=== PATIENT | male | born 1970 | race Caucasian/White ===

== ENCOUNTER 2020-06-14 13:43 | Outpatient (CLI) | payer BC, SELFPAY ==
--- NOTE | ~2020-06-14 | NM_ITS ---
EXAMINATION: NM thyroid scan w uptake DATE: 06/15/2020 15:01 INDICATION: Thyrotoxicosis COMPARISON: None. TECHNIQUE: 358 microcuries I-123 was administered orally in capsule form. Scintigraphic images of th e thyroid gland were obtained at 24 hours. Thyroid uptake was calculated by the technologist. FINDINGS: The thyroid uptake is 51.7% (normal 10-30%), with the right lobe measuring 33.3% uptake and the left 19.3%. Although there is asymmetric increased uptake in the right thyroid lobe there is no focal area of decreased or increased activity within either lobe to suggest hypofunctioning or hyperfunctioning nodule. IMPRESSION: 1. Bilateral diffuse increased thyroid uptake particularly in the right thyroid lobe consistent with Graves' disease. Reviewed, dictated and finalized at location B. IMPRESSION: 1. Bilateral diffuse increased thyroid uptake particularly in the right thyroi d lobe consistent with Graves' disease.
== END 2020-06-14 13:44 | disposition home or self-care (01) ==
PROVIDERS: PCP Internal Medicine; Visit Provider Internal Medicine
DX: E05.90 Thyrotoxicosis, unspecified without thyrotoxic crisis or storm (principal)
CPT/HCPCS: 78014; A9516

== ENCOUNTER 2021-03-17 13:42 | Outpatient (RCR) | payer BC, SELFPAY ==
[2021-03-17] MEDS: ACETAMINOPHEN 325 MG TABLET 650 MG PO (15:16)
[2021-03-17] MEDS: FAMOTIDINE 20 MG TABLET PO (15:17)
[2021-03-17] MEDS: diphenhydrAMINE HCl CAP 25 MG CAPSULE PO (15:17)
[2021-03-17 15:24] VITALS: BP 130/74; PULSE 65; RESP 18; TEMP 37.2; O2SAT 98
[2021-03-17 16:47] VITALS: BP 120/70
== END 2021-03-17 17:00 ==
LOC: AMCINF 13:42
PROVIDERS: PCP Internal Medicine; Referring Provider Internal Medicine; Visit Provider Internal Medicine Hematology & Oncology
DX: U07.1 COVID-19 (principal); I48.91 Unspecified atrial fibrillation; E05.00 Thyrotoxicosis with diffuse goiter without thyrotoxic crisis or storm; D84.9 Immunodeficiency, unspecified
CPT/HCPCS: A9270; M0243; Q0244

== ENCOUNTER → 2021-03-21 16:03 | Outpatient (CLI) | payer BC, SELFPAY ==
--- NOTE | ~2021-03-21 | XR_ITS ---
EXAMINATION: XR finger 3rd LT min 2V EXAM DATE: 03/21/2021 16:25 INDICATION: S63.289A - Dislocation of proximal interphalangeal joint of unspecified finger. Initial xray to Injury of LT hand 3rd digit from 1 year ago. no pain. pt cannot bend finger. TECHNIQUE: Left 3rd finger frontal, lateral and oblique projections obtained and reviewed. There i s no prior study for comparison at this time, reportedly there was an old x-ray from a year ago which is not available. FINDINGS: There is abnormal articulation at the left 3rd proximal interphalangeal joint, abnormal sha pe to the volar half of the middle phalangeal base, probably from a healed old fracture, with widenin g of the base articular surface, and in a posteriorly subluxed position. Mild to moderate osteoarthri tis at this joint which could be secondary to that old trauma. IMPRESSION: Left 3rd PIP joint appearance likely result of healed middle phalangeal base fracture, s econdary osteoarthritis. Reviewed, dictated and finalized at location A. WARE PROJECT MANAGER IMPRESSION: Left 3rd PIP joint appearance likely result of healed middle phala ngeal base fracture, secondary osteoarthritis.
--- NOTE | ~2021-03-21 | XR_ITS ---
EXAMINATION: XR chest 2V DATE: 03/21/2021 16:25 INDICATION: Hemoptysis. COVID-19 positive 10 days ago. TECHNIQUE: Frontal and lateral views of the chest were obtained. COMPARISON: None. FINDINGS: There is mild elevation of right hemidiaphragm. There are mild airspace opacities in right mid lung zone. No pleural effusion or pneumothorax. The heart size is normal. There is an implanted e lectronic device in left anterior chest wall. IMPRESSION: 1. Mild airspace opacities in right midlung zone, consistent with pneumonia. Reviewed, dictated and finalized at location B. ATING ROOM SPECIALIST
== END ==
PROVIDERS: PCP Internal Medicine; Visit Provider Internal Medicine
DX: R04.2 Hemoptysis (principal); S63.289A Dislocation of proximal interphalangeal joint of unspecified finger, initial encounter; X58.XXXA Exposure to other specified factors, initial encounter
CPT/HCPCS: 71046; 73140

== ENCOUNTER 2023-09-21 08:50 | Outpatient (CLI) | payer BC, SELFPAY ==
--- NOTE | ~2023-09-21 | US_ITS ---
EXAMINATION: US soft tissue abdomen DATE: 09/21/2023 09:09 INDICATION: Abdominal wall lump. TECHNIQUE: Multiple grayscale and Doppler ultrasound images of the abdomen were obtained. COMPARISON: None FINDINGS: There is a supraumbilical ventral hernia containing fat. IMPRESSION: 1. Supraumbilical ventral hernia containing fat. Reviewed, dictated and finalized at location E.
== END 2023-09-21 08:51 ==
PROVIDERS: PCP Internal Medicine; Visit Provider Nurse Practitioner
DX: R19.00 Intra-abdominal and pelvic swelling, mass and lump, unspecified site (principal); K42.9 Umbilical hernia without obstruction or gangrene; K43.9 Ventral hernia without obstruction or gangrene
CPT/HCPCS: 76705

== ENCOUNTER 2025-01-16 01:17 | Day surgery (SDC) | payer BC, SELFPAY ==
[2025-01-12 16:04] VITALS: BMI 36.9
--- NOTE | 2025-01-12 16:18 | SUR.PREOP ---
SPoke with patient in regards to his eliquis. Last dose is to be on 01/13/2025 for his colonoscopy on 01/16/2025. Patient verbalized understanding.
--- OUTSIDE RECORDS SUMMARY | 2025-01-16 01:20 | XMS_ITS | Clinical Summary ---
Author Organization [facility] Address [address] [place] [id number] Care Team Providers Care Canal Lock Tender Chief Operator Name Role Phone Wero Soares DO Primary Care Provider [phone] Allergies Active Allergy Reactions Criticality Noted Date Comments Amoxicillin Hives,Shortness of Breath High 0 Cefaclor Rash Medium 08/20/2018 Erythromycin Hives,Rash Medium 06/22/2018 Medications dofetilide (TIKOSYN) 250 MCG capsule Take 1 capsule (250 mcg total) by mouth 2 (two) times daily. Active metoprolol tartrate (LOPRESSOR) 50 MG tablet Take 1 tablet (50 mg total) by mouth 2 (two) times daily. Active methIMAzole (TAPAZOLE) 10 MG tablet 1 tablet (10 mg total). 02/28/2023 Active ELIQUIS 5 MG tablet Take 1 tablet (5 mg total) by mouth 2 (two) times daily. Active albuterol sulfate HFA 108 (90 Base) MCG/ACT inhaler Inhale 2 puffs into the lungs every 6 (six) hours as needed. 8 g 02/03/2024 Active Family History Medical History Relation Comments No Known Problems Father No Known Problems Mother Relation Status Comments Father Mother Social History Tobacco Use Types Packs/Day Years Used Date Smoking Tobacco: Never Passive Smoke Exposure: Never Smokeless Tobacco: Never Tobacco Cessation:Counseling Given: Not Answered Alcohol Use Standard Drinks/Week Comments Not Currently 0 (1 standard drink = 0.6 oz pur e alcohol) Sex and Gender Information Value Date Recorded Sex Assigned at Not on file Legal Sex Male 8:03 PM CDT Gender Identity Not on file Sexual Orientation Not on file Last Filed Vital Signs Vital Sign Reading Time Taken Comments Blood Pressure 149/92 02/03/2024 5:35 PM ACCESS SERVICES ASSISTANT Pulse 72 02/03/2024 2:48 PM ACCESS SERVICES ASSISTANT Temperature 36.9 C (98.4 F) 02/03/2024 2:48 PM ACCESS SERVICES ASSISTANT Respiratory Rate 18 02/03/2024 2:48 PM ACCESS SERVICES ASSISTANT Oxygen Saturation 98% 02/03/2024 5:35 PM ACCESS SERVICES ASSISTANT Inhaled Oxygen Concentration - - Weight 133.8 kg (295 lb) 02/03/2024 12:41 PM ACCESS SERVICES ASSISTANT Height 190.5 cm (6' 3) 02/03/2024 12:41 PM ACCESS SERVICES ASSISTANT Body Mass Index 36.87 02/03/2024 12:41 PM ACCESS SERVICES ASSISTANT Plan of Treatment Health Maintenance Due Date Last Done Comments Colorectal Cancer Screening Colonoscopy (10 Years) 1972 Annual Physical 08/22/1975 Hepatitis C 1990 Hepatitis B Vaccines (1 of 3 - 19+ 3-dose series) 08/22/1991 Pneumococcal Vaccine: 50+ Ye ars (1 of 1 - PCV) 2022 Zoster Vaccines (1 of 2) 2022 COVID-19 Vaccine (1 - 2024-2 6 season) 2024 Influenza Adult (#1) 2024 DTaP, Tdap and Td Vaccines ( 2 - Td or Tdap) 03/29/2031 03/29/2021 Hepatitis A Vaccines Aged Out No long er eligible based on patient's age to complete this topic Meningococcal B Vaccine Aged Out No l onger eligible based on patient's age to complete this topic Meningococcal Vaccine Aged Out No wilfredo felicita eligible based on patient's age to complete this topic RSV Immunizations Under 20 Months Aged Out No longer eligible based on patient's age to complete this topic Insurance Care Teams Canal Lock Tender Chief Operator Relationship Specialty Start Date End Date Wero Soares DO [address] [facility] [address] [place] [address] PCP - General INTERNAL MEDICINE 02/03/24
--- OUTSIDE RECORDS SUMMARY | 2025-01-16 01:20 | XMS_ITS | Clinical Summary ---
Author Organization [facility] [address] [place] [id number] Care Team Providers Care Rebar Fabricator Name Role Phone Wero Soares DO Primary Care Provider Allergies Active Allergy Reactions Criticality Noted Date Comments Amoxicillin Hives,Shortness of breath High 0 Cefaclor Rash Medium 08/20/2018 Erythromycin Hives,Rash Medium 06/22/2018 Medications Eliquis 5 mg tablet Take 1 tablet (5 mg total) by mouth 2 (two) times a day 2 Active dofetilide (TIKOSYN) 250 mcg capsule Take 1 capsule (250 mcg total) by mouth every 12 (twelve) hours 1 Active metoprolol XL (TOPROL-XL) 50 mg extended release tablet Take 1 tablet (50 mg total) by mouth daily 3 Active testosterone cypionate, micro (testosterone cyp, micro, bulk,) 100 % powder 0 3 Active famotidine (PEPCID) 20 mg tabletIndications:D yspepsia,Heartburn Take 1 tablet (20 mg total) by mouth 2 (two) times a day 20 tablet 3 Active ondansetron ODT (ZOFRAN-ODT) 4 mg disintegrating tablet Take 1 tablet (4 mg total) by mouth every 6 (six) hours as needed for nausea or vomiting 20 tablet 3 Active testosterone propionate, bulk, powder 0 3 Active testosterone enanthate, bulk, 100 % powder 0 4 Active testosterone cypionate, bulk, 100 % powder 0 4 Active albuterol HFA (PROVENTIL HFA,VENTOLIN HFA,PROAIR HFA) 90 mcg/actuation inhaler Inhale 2 puffs every 6 (six) hours as needed 4 Active predniSONE (DELTASONE) 50 mg tablet 4 Active methIMAzole (TAPAZOLE) 5 mg tabletIndications:H yperthyroidism Take 1 tablet (5 mg total) by mouth 2 (two) times a week 1 tab po 5 days a week, none on the weekends 24 tablet 1 5 09/19/19 26 Active Active Problems Problem Noted Date Diagnosed Date Hyperthyroidism 10/25/2021 Assessment & Plan (08/12/2024 9:28 AM CDT): Chronic problem. Currently taking methimazole 5 mg 3 days/wk. Reviewed labs from [facility] 07/21/24. Will decrease methimazole 5mg from 3 times weekly to twice weekly. Repeat labs at [facility] in 2-3 months. Verified that he uses mychart. Aware to check results/results letter in [employer] [employer]. Will contact by phone if needed. Contact your veterinarian about your elevated blood pressure. Take it later today & tomorrow. 132/100 & 138/94 here today. Assessment & Plan (03/03/2024 10:01 AM FINANCIAL RISK MANAGER): Chronic problem. Currently taking methimazole 5 mg M-. Reviewed labs from [facility] (will sign release to get copy). Will decrease methimazole 5mg three time weekly. Will repeat labs in 2 months at [facility]. Verified that he uses mychart. Aware to check results/results letter in [employer] Will contact by phone if needed. Assessment & Plan (08/14/2023 2:52 PM CDT): Chronic Update TFTs Lower methimazole 5 mg 5 days a week Assessment & Plan (05/03/2023 1:51 PM FINANCIAL RISK MANAGER): Chronic , improving , Lower tapazole to 5 mg daily Recheck labs in 3 m Assessment & Plan (02/08/2023 1:46 PM FINANCIAL RISK MANAGER): Chronic problem. Currently taking methimazole 15mg daily. Asymptomatic at this time. Had labs drawn 12/2022 in ER but not T3. Will update labs today. Verified that he uses mychart. Aware to check results/results letter in [employer]. Will contact by phone if needed. Verified pharmacy & his contact info. Aware that he may need to repeat labs in 6-8 weeks. Will adjust methimazole as needed. Assessment & Plan (10/24/2022 4:25 PM CDT): Recurrent Graves disease Update TFTs, including a TSH Tresiba antibody and TSI Restart Tapazole accordingly Assessment & Plan (04/25/2022 4:15 PM FINANCIAL RISK MANAGER): Normal TFTs Hyperthyroidism in remission Follow-up in 6 months Assessment & Plan (10/25/2021 10:00 AM CDT): Probably related to Graves disease, as indicated by a elevated TSH receptor antibody. The patient seems to be in remission I have advised the patient to stop the Tapazole Will recheck thyroid function test today and again in 3 months The patient also was advised to call with any new symptoms e.g. weight loss, palpitations, tremors, heat intolerance He seems to understand and agrees Surgical History Surgery Date Site/Laterality Comments ATRIAL ABLATION SURGERY LOOP ELECTROSURGICAL EXCISION PROCEDURE Medical History Medical History Date Comments Sleep apnea Graves disease Family History Medical History Relation Name Comments Cancer Father Relation Name Status Comments Father Social History Tobacco Use Types Packs/Day Years Used Date Smoking Tobacco: Former Tobacco Cessation:Counseling Given: Not Answered PHQ-2 Answer Date Recorded PHQ-2 Total Score (If total score is 3 or more points, staff should administer the PHQ-9) 0 02/08/2023 Personal Safety Answer Date Recorded Have you ever been in or are you currently in a harmful physical or emotional relationship or is someone making you feel afraid or unsafe? Denies 12/27/2023 Sex and Gender Information Value Date Recorded Sex Assigned at Not on file Legal Sex Male 8:15 PM FINANCIAL RISK MANAGER Gender Identity Not on file Sexual Orientation Not on file Last Filed Vital Signs Vital Sign Reading Time Taken Comments Blood Pressure 138/94 08/12/2024 9:21 AM CDT Pulse 65 08/12/2024 9:02 AM CDT Temperature 36.7 C (98.1 F) 12/27/2023 2:47 PM CDT Respiratory Rate 18 03/03/2024 9:31 AM FINANCIAL RISK MANAGER Oxygen Saturation 99% 12/27/2023 2:47 PM CDT Inhaled Oxygen Concentration - - Weight 140.2 kg (309 lb) 08/12/2024 9:02 AM CDT Height 190.5 cm (6' 3) 03/03/2024 9:31 AM FINANCIAL RISK MANAGER Body Mass Index 38.62 03/03/2024 9:31 AM FINANCIAL RISK MANAGER Plan of Treatment Health Maintenance Due Date Last Done Comments Colon Cancer Screening-Colonoscopy 1972 Hepatitis C Screening 1972 Prostate Cancer Screening-PSA 1972 Hepatitis B Screening 1990 Regular Well Visit/Exam 18-64 1990 Zoster Vaccine (1 of 2) 2022 Depression Screening 02/09/2024 02/08/2023, 10/25/2021 Influenza Vaccine (#1) 2024 DTaP/Tdap/Td Vaccine (2 - Td or Tdap) 03/29/2031 03/29/2021 Pneumococcal vaccine <65 Aged Out No longer eligible based on patient's age to complete this topic [place] Care Teams Rebar Fabricator Relationship Specialty Start Date End Date Wero Soares DO PCP - General Internal Medicine 08/23/21
[2025-01-16 12:08] VITALS: BP 137/86; PULSE 69; RESP 18; TEMP 36.7; O2SAT 97; BMI 36.3
[2025-01-16] MEDS: LACTATED RINGERS 1,000 ML 150 ML IV CONT (12:26)
--- NOTE | 2025-01-16 12:30 | WPDANESEPPF ---
Anes - Initial Pre Proc Eval Procedure: Operation Date: 01/16/25 14:30 Proposed Procedures p Diagnostic Colonoscopy - Chirag Baxter MD Date/Time: 01/16/25 12:30 Surgeon: Chirag Baxter MD Pre Op Diagnosis: Melena Patient Data Age: 54 Gender: M Height: 1.91 m Weight: 131.8 kg Last Vital Signs Temp 36.7 C 01/16/25 12:08 Pulse 69 01/16/25 12:08 Resp 18 01/16/25 12:08 BP 137/86 01/16/25 12:08 Pulse Ox 97 01/16/25 12:08 O2 Del Method Room Air 01/16/25 12:08 Allergies Allergy/AdvReac Type Severity Reaction Status Date / [facility] Allergy Mild Hives Verified 01/16/25 12:13 erythromycin base Allergy Mild Hives Verified 01/16/25 12:13 polymyxin B Allergy Mild Unknown Verified 01/16/25 12:13 amoxicillin Allergy Hives Verified 01/16/25 12:13 Home Medications ?Medication ?Instructions ?Recorded ?Confirmed ?Type apixaban 5 mg tablet (Eliquis) 5 mg PO BID 06/22/20 01/16/25 History dofetilide 250 mcg capsule 250 mcg PO Q12H 06/22/20 01/16/25 History (Tikosyn) metoprolol succinate 25 mg 25 mg PO DAILY 09/19/23 01/16/25 History tablet,extended release 24 hr methimazole 5 mg tablet 5 mg PO .2x w 12/04/24 01/16/25 History Patient hx anesthesia problems: none Family hx anesthesia problems: none Results Review: All pre-operative results and documents have been reviewed as part of the pre-operative evaluation. [facility] Past Medical History Medical History Obesity (BMI 30-39.9) Right shoulder pain Hospital discharge follow-up Finger deformity, acquired Pneumonia due to COVID-19 virus COVID-19 determined by clinical diagnostic criteria Closed dislocation finger, proximal interphalangeal joint, traumatic Graves' disease Hyperthyroidism Obesity (BMI 35.0-39.9 without comorbidity) Hypogonadism in male Atrial fibrillation Surgical History Surgical History H/O cardiac radiofrequency ablation 04/2021 History of loop recorder Placed 12/2020 Family History Family History Father Lung cancer Social History Social History Smoking status: Current some day smoker Alcohol intake: never Substance use: never Lack of Transportation: No Lack of Food: Never True Current Housing: I Have Housing Concerned About Future Housing: No Difficulty Paying Gas/Electric Bills: No Difficulty Paying for Meds: No Currently Unemployed: YES Education: Decline to Answer Difficulty w/ Childcare or Family Care: No Anes - Eval Final PreProcedure Day of Procedure 01/16/25 12:30 Patient weight: obese Heart: regular rate and rhythm Lungs: clear to auscultation Airway: Mallampati scale class II Neurological: alert and oriented Last oral intake: >/= 8 hours ASA classification: III Emergent: no Anesthetic plan: proceed Anesthesia type and monitoring: general GIVS and standard monitoring Results Review: All pre-operative results and documents have been reviewed as part of the pre-operative evaluation. Informed Consent: The patient's anesthetic plan and its attendant risks and benefits were discussed with the patient/family/POA. Questions were solicited and answers provided to the satisfaction of the patient/family/POA.
--- NOTE | 2025-01-16 12:31 | PM.HPGS ---
History of Present Illness History of Present Illness Consent: Risks, benefits, and alternatives have been discussed and questions answered. Patient agrees to proceed with procedure. Chief complaint: Melena Narrative: Dante Foley is a 54 year old male here for first colonoscopy, had blood in stool Review of Systems Review of Systems: All systems reviewed & are unremarkable except as noted in HPI and below PMFSH Past Medical History Medical History (Updated 01/16/25 @ 12:58 by Chirag Baxter MD) Rectal bleeding Obesity (BMI 30-39.9) Right shoulder pain Hospital discharge follow-up Finger deformity, acquired Pneumonia due to COVID-19 virus COVID-19 determined by clinical diagnostic criteria Closed dislocation finger, proximal interphalangeal joint, traumatic Graves' disease Hyperthyroidism Obesity (BMI 35.0-39.9 without comorbidity) Hypogonadism in male Atrial fibrillation Surgical History Surgical History H/O cardiac radiofrequency ablation 04/2021 History of loop recorder Placed 12/2020 Family History Family History Father Lung cancer Social History Social History Smoking status: Current some day smoker Alcohol intake: never Substance use: never Lack of Transportation: No Lack of Food: Never True Current Housing: I Have Housing Concerned About Future Housing: No Difficulty Paying Gas/Electric Bills: No Difficulty Paying for Meds: No Currently Unemployed: YES Education: Decline to Answer Difficulty w/ Childcare or Family Care: No Meds Home Medications and Allergies Home Medications ?Medication ?Instructions ?Recorded ?Confirmed ?Type apixaban 5 mg tablet (Eliquis) 5 mg PO BID 06/22/20 01/16/25 History dofetilide 250 mcg capsule 250 mcg PO Q12H 06/22/20 01/16/25 History (Tikosyn) metoprolol succinate 25 mg 25 mg PO DAILY 09/19/23 01/16/25 History tablet,extended release 24 hr methimazole 5 mg tablet 5 mg PO .2x w 12/04/24 01/16/25 History Allergies Allergy/AdvReac Type Severity Reaction Status Date / Time cefaclor (From Ceclor) Allergy Mild Hives Verified 01/16/25 12:13 erythromycin base Allergy Mild Hives Verified 01/16/25 12:13 polymyxin B Allergy Mild Unknown Verified 01/16/25 12:13 amoxicillin Allergy Hives Verified 01/16/25 12:13 Vital Signs Vital Signs - 24 hr 01/16/25 12:08 Temperature 98.1 F Pulse Rate 69 Respiratory Rate 18 Blood Pressure 137/86 Pulse Oximetry 97 Oxygen Delivery Room Air Exam Const: General: comfortable and no acute distress HENMT: Face/Nose/Sinus: Normal nares present Eyes: General: appearance normal, both eyes and all related structures Neck: Neck: no JVD Resp: Auscultation: clear to auscultation bilaterally Cardio: Rate: regular rate Rhythm: regular rhythm GI: Inspection: non-distended GI Palp: Yes Soft to palpation Skin: General skin exam: normal color Extrem: General: normal to inspection Psych: Mental Status: mental status grossly normal Assessment and Plan Assessment and plan (1) Rectal bleeding: Code(s): K62.5 - Hemorrhage of anus and rectum Status: Acute Assessment and Plan: colonoscopy (2) Screening for colon cancer: Code(s): Z12.11 - Encounter for screening for malignant neoplasm of colon Status: Acute
[2025-01-16 12:58] VITALS: BP 108/58; PULSE 65; RESP 21; O2SAT 97
--- NOTE | 2025-01-16 12:58 | S_PTH ---
PATIENT: Dante Foley LOC: [facility]#:[id number] AGE/SX: 54/M ROOM: RE01/16/[address]: Chirag Baxter MD : 1970 BED: DIS: 01/16/2025 SPEC #: [id number] RECD: 01/16/25 13:15 STATUS: EDGARDO REConrad #: [id number] MAHESH: 01/16/25 12:[address]: Chirag Baxter DEPT: [facility] Surgical RECD BY: Chery Isidro ENTERED: 01/16/25 13:16 SP TYPE: Surgical OTHR DR: Wero Soares DO Tissues: A - Colon Polypectomy B - Colon Polypectomy C - Rectal Polyp Procedures: Hematoxylin and Eosin Stain Gross and Microscopic Level 4
[2025-01-16 13:08] VITALS: BP 113/59; PULSE 58; RESP 16; O2SAT 97
[2025-01-16 13:18] VITALS: BP 120/74; PULSE 59; RESP 15; O2SAT 100
== END 2025-01-16 13:37 | disposition home or self-care (01) ==
PROVIDERS: PCP Internal Medicine; Referring Provider Nurse Practitioner; Visit Provider Internal Medicine Gastroenterology
PROC: 0DJD8ZZ Inspection of Lower Intestinal Tract, Via Natural or Artificial Opening Endoscopic (ICD-10-PCS; CPT 45378; principal; 2025-01-16 14:30)
DX: Z12.11 Encounter for screening for malignant neoplasm of colon (principal); D12.3 Benign neoplasm of transverse colon; D12.4 Benign neoplasm of descending colon; D12.8 Benign neoplasm of rectum; K64.8 Other hemorrhoids; E05.00 Thyrotoxicosis with diffuse goiter without thyrotoxic crisis or storm; E29.1 Testicular hypofunction; I48.91 Unspecified atrial fibrillation; F17.210 Nicotine dependence, cigarettes, uncomplicated; E66.9 Obesity, unspecified; Z68.36 Body mass index [BMI] 36.0-36.9, adult; Z79.01 Long term (current) use of anticoagulants; Z86.79 Personal history of other diseases of the circulatory system; Z80.1 Family history of malignant neoplasm of trachea, bronchus and lung
CPT/HCPCS: 45385; 45380; 88305; J2704; J7120